=== PATIENT | male | born 2000 | race Caucasian/White ===

== ENCOUNTER 2024-05-14 16:54 | Emergency (ER) | payer SELFPAY ==
--- NOTE | ~2024-05-14 | XR_ITS ---
CHEST RADIOGRAPH, PA AND LATERAL CLINICAL HISTORY: cough . COMPARISON: None available TECHNIQUE: PA and lateral views of the chest. FINDINGS The cardiomediastinal silhouette is unremarkable. The lungs are clear. Visualized osseous structures and soft tissues are unremarkable. IMPRESSION: No focal infiltrate or effusion. Reviewed, dictated and finalized at location A.
[2024-05-14 16:58] VITALS: BP 144/84; PULSE 79; RESP 16; TEMP 36.8; O2SAT 99
--- NOTE | 2024-05-14 17:16 | ED.URI ---
HPI - URI/Sore Throat General Chief Complaint: Upper Respiratory Infection <Annita Rubio APRN - Last Filed: 05/14/24 17:17> Stated Complaint: sore throat, cough, congestion <Annita Rubio APRN - Last Filed: 05/14/24 17:17> Time Seen by Provider: 05/14/24 17:10 <Annita Rubio APRN - Last Filed: 05/14/24 17:17> Focused HPI: Patient is a 24-year-old male who presents to the ER with flu-like symptoms that started approximately 2 nights ago. His symptoms include coughing, stomach ache, sore throat, and diarrhea. He denies any nausea, vomiting, recent fevers. Patient endorses a history GI issues similar to Crohn's, and an appendectomy. He reports he has been around many of his coworkers who have been sick. GENERAL: Well-appearing, well-nourished, and in no acute distress. HEAD: Normocephalic, atraumatic. CHEST: Clear to auscultation. ?No respiratory distress. HEART: Regular rate and rhythm.? NEURO: ?Alert and oriented x3. Patient screened in triage and initial orders placed.? ?Additional care and disposition to be based upon?diagnostic testing and treatment. <Annita Rubio APRN - Last Filed: 05/14/24 17:17> Related Data Allergies/Adverse Reactions: Allergies Allergy/AdvReac Type Severity Reaction Status Date / Time No Known Allergies Allergy Verified 05/14/24 17:18 <Annita Rubio APRN - Last Filed: 05/14/24 17:17> Review of Systems Review of Systems: CONSTITUTIONAL: Denies fever ENT: Reports congestion, sore throat RESPIRATORY: Reports cough. Denies dyspnea. GASTROINTESTINAL: Denies vomiting <Kaley Mares PA-C - Last Filed: 05/14/24 18:25> All systems reviewed & are unremarkable except as noted in HPI and below <Kaley Mares PA-C - Last Filed: 05/14/24 18:25> PMFSH Past Medical History Medical History: Medical History (Updated 05/14/24 @ 18:23 by Kaley Mares PA-C) No active medical problems <Annita Rubio APRN - Last Filed: 05/14/24 17:17> Social History Social History: Social History (Updated 05/14/24 @ 18:23 by Kaley Mares PA-C) Smoking status: Former smoker <Annita Rubio APRN - Last Filed: 05/14/24 17:17> Exam Narrative: GENERAL: Well-appearing, well-nourished, and in no acute distress. HEAD: Normocephalic, atraumatic. EYES: EOMI. ENT: Nares clear, no rhinorrhea or epistaxis. Mucous membranes moist. Oropharynx without tonsillar hypertrophy exudate or other lesions. Bilateral TMs pearly rausch non-bulging NECK: Supple. No adenopathy or masses. CHEST: Clear to auscultation. No respiratory distress. No wheezes rales or rhonchi HEART: Regular rate and rhythm. No murmur heard. Normal peripheral pulses. EXTREMITIES: Normal range of motion. No edema. SKIN: Warm, dry, no rash. NEURO: No focal deficits. Alert and oriented x3. PSYCH: Normal mood and affect <Kaley Mares PA-C - Last Filed: 05/14/24 18:25> Course Course Emergency Course: Patient updated on his workup and agrees with plan of care <Kaley Mares PA-C - Last Filed: 05/14/24 18:25> Vital Signs Vital signs: Vital Signs Temperature 98.3 F 05/14/24 16:58 Pulse Rate 79 05/14/24 16:58 Respiratory Rate 16 05/14/24 16:58 Blood Pressure 144/84 H 05/14/24 16:58 Pulse Oximetry 99 05/14/24 16:58 Temperature 98.3 F 05/14/24 16:58 Pulse Rate 79 05/14/24 16:58 Respiratory Rate 16 05/14/24 16:58 Blood Pressure 144/84 H 05/14/24 16:58 Pulse Oximetry 99 05/14/24 16:58 Oxygen Delivery Room Air 05/14/24 17:15 <Annita Rubio APRN - Last Filed: 05/14/24 17:17> Vital Signs Temperature 98.3 F 05/14/24 16:58 Pulse Rate 79 05/14/24 16:58 Respiratory Rate 16 05/14/24 16:58 Blood Pressure 144/84 H 05/14/24 16:58 Pulse Oximetry 99 05/14/24 16:58 Temperature 98.3 F 05/14/24 16:58 Pulse Rate 79 05/14/24 16:58 Respiratory Rate 16 05/14/24 16:58 Blood Pressure 144/84 H 05/14/24 16:58 Pulse Oximetry 99 05/14/24 16:58 Oxygen Delivery Room Air 05/14/24 17:15 <Kaley Mares PA-C - Last Filed: 05/14/24 18:25> MDM - URI/Sore Throat MDM Narrative Medical decision making narrative: Patient presents the emergency department for cold symptoms ongoing over the last 2 days. Patient is afebrile nontoxic appearing. Lungs are clear on exam. Influenza, RSV, COVID, strep screens are negative. Patient updated on workup and agrees with plan of care. He was given warnings to return to the ER <Kaley Mares PA-C - Last Filed: 05/14/24 18:25> Differential Diagnosis Differential diagnosis: Likely upper respiratory infection, sinusitis, viral infection, bronchitis, influenza and pharyngitis <Kaley Mares PA-C - Last Filed: 05/14/24 18:25> Lab Data Attestation: I reviewed the patient's lab results. <Kaley Mares PA-C - Last Filed: 05/14/24 18:25> Labs: Lab Results 05/14/24 Range/Units 17:02 Influenza A (RT-PCR) Negative (Negative) Influenza B (RT-PCR) Negative (Negative) RSV (RT-PCR) Negative (Negative) SARS-CoV-2 RNA (RT-PCR) Negative (Negative) Group A Strep (PCR) Not detected (Negative) <Annita Rubio APRN - Last Filed: 05/14/24 17:17> Lab Results 05/14/24 Range/Units 17:02 Influenza A (RT-PCR) Negative (Negative) Influenza B (RT-PCR) Negative (Negative) RSV (RT-PCR) Negative (Negative) SARS-CoV-2 RNA (RT-PCR) Negative (Negative) Group A Strep (PCR) Not detected (Negative) <Kaley Mares PA-C - Last Filed: 05/14/24 18:25> Imaging Data Radiologist's impression: ITS Impressions Chest X-Ray 05/14/24 18:01 IMPRESSION: No focal infiltrate or effusion. <Kaley Mares PA-C - Last Filed: 05/14/24 18:25> Critical Care Time Critical Care Time Critical Care Time: No <Kaley Mares PA-C - Last Filed: 05/14/24 18:25> Discharge Plan Discharge Clinical Impression: Upper respiratory infection Qualifiers: URI type: unspecified viral URI Qualified Code(s): J06.9 - Acute upper respiratory infection, unspecified <Annita Rubio APRN - Last Filed: 05/14/24 17:17> Patient Disposition: Home, Self-Care <Annita Rubio APRN - Last Filed: 05/14/24 17:17> Condition: Stable <Annita Rubio APRN - Last Filed: 05/14/24 17:17> Instructions: Viral Syndrome (ED) <Annita Rubio APRN - Last Filed: 05/14/24 17:17> Additional Instructions: Return to the emergency department for worsening symptoms, or any other concerns Remain well-hydrated, get plenty of rest. Take Tylenol or Motrin [id number] for pain as needed. Flonase for nasal congestion. Zyrtec for runny nose. Lozenges or Chloraseptic spray for sore throat. Albuterol 2 puffs every 4-6 hours as needed Follow up with primary care doctor <Annita Rubio APRN - Last Filed: 05/14/24 17:17> Patient Language: Mexican <Annita Rubio APRN - Last Filed: 05/14/24 17:17> Follow-up/Referrals: Concepcion Graham DO [Physician] - PHYSICIAN,FUEL STORAGE TECHNICIAN [Non-Staff] - <Annita Rubio APRN - Last Filed: 05/14/24 17:17> Stand Alone Forms: Work/School Release IP <Annita Rubio APRN - Last Filed: 05/14/24 17:17>
[2024-05-14 17:31] LABS: Strep Group A RT-PCR NOT DETECTED (Negative)
[2024-05-14 17:43] LABS: Influenza A QL RT-PCR Negative (Negative); Influenza B QL RT-PCR Negative (Negative); RSV RNA, RT-PCR Negative (Negative); SARS-CoV-2 RNA PCR Negative (Negative)
--- OUTSIDE RECORDS SUMMARY | 2024-05-14 17:52 | XMS_ITS | Encounter Summary ---
Author Organization [facility] Address [address] [place] [address] Care Team Providers Care Segmental Wall Installer Name Role Phone Bro Melendez MD Primary Care Provider Encounter Details Date Type Department Care Team (Late st Contact Info) Description 11/14/2022 Procedure Pass [facility] [address] Department [address] [facility], [place] [id number] Social History Tobacco Use Types Packs/Day Years Used Date Smoking Tobacco: Some Days e-cigarette Smokeless Tobacco: Former Chew Comments:Vapes and CBD Alcohol Use Standard Drinks/Week Comments Yes 0 (1 standard drink = 0.6 oz pur e alcohol) occasionally Sex and Gender Information Value Date Recorded Sex Assigned at Not on file 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 Wish to be (Past 1 Month) No 023 10:20 PM CDT Maria Antonia Joyner RN 2. Non-Specific Active Suici neville Thoughts (Past 1 Month) No 11/14/2022 10:20 PM CDT Maria Antonia Joyner RN 6. Suicidal Behavior (Lifetime) No 3 10:20 PM CDT Maria Antonia Joyner, SANAM * Calculated C-SSRS Risk Score (Lifetime/Recent) Answer Date of Assessment Author No Risk Indicated 11/14/2022 10:20 PM CDT Maria Antonia Joyner RN documented as of this encounter Plan of Treatment Not on file documented as of this encounter Visit Diagnoses Not on filedocumented in this encounter Additional Health Concerns Infection Onset Date Last Indicated Resolved Time INFLUENZA (Seasonal) 12/23/2021 12/23/2021 documented as of this encounter Care Teams Segmental Wall Installer Relationship Specialty Start Date End Date Bro Melendez MD [address] [place] [address] [place]y [id number] PCP - General 01/24/17 documented as of this encounter
--- OUTSIDE RECORDS SUMMARY | 2024-05-14 17:52 | XMS_ITS | Encounter Summary ---
Author Organization [facility] Address [address] [facility] [place] [address] Care Team Providers Care Bio Medical Technician Name Role Phone Bro Melendez MD Primary Care Provider [phone] Encounter Details Date Type Department Care Team (Late st Contact Info) Description 02/28/2022 Procedure Pass [facility] Department [address] [facility], [place] [id number] Social History Tobacco Use Types Packs/Day Years Used Date Smoking Tobacco: Never Smokeless Tobacco: Current Comments:Vapes and CBD Alcohol Use Standard Drinks/Week Comments Yes 0 (1 standard drink = 0.6 oz pur e alcohol) occasionally Sex and Gender Information Value Date Recorded Sex Assigned at Not on file 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 Wish to be (Past 1 Month) No 023 7:12 AM Humera Ko, SANAM 2. Non-Specific Active Suici neville Thoughts (Past 1 Month) No 02/28/2022 7:12 AM Humera Ko RN 6. Suicidal Behavior (Lifetime) No 3 7:12 AM Humera Ko, RN * Calculated C-SSRS Risk Score (Lifetime/Recent) Answer Date of Assessment Author No Risk Indicated 02/28/2022 7:12 AM Humera Ko, RN documented as of this encounter Plan of Treatment Not on file documented as of this encounter Visit Diagnoses Not on filedocumented in this encounter Additional Health Concerns Infection Onset Date Last Indicated Resolved Time INFLUENZA (Seasonal) 12/23/2021 12/23/2021 documented as of this encounter Care Teams Bio Medical Technician Relationship Specialty Start Date End Date Bro Melendez MD [address] [place] [address] [place] [id number] PCP - General 01/24/17 documented as of this encounter
--- OUTSIDE RECORDS SUMMARY | 2024-05-14 17:52 | XMS_ITS | Referral Summary ---
Author Organization [facility] Address [address] [facility] [place] [address] Care Team Providers Care Ent Surgeon Name Role Phone Bro Melendez MD Primary Care Provider [phone] Allergies No known active allergies Medications oxyCODONE-aceta minophen (PERCOCET) 5-325 mg tablet Take 1 Tablet by mouth every 6 hours as needed for Breakthrough Pain. Max Daily Amount: 4 Tablets. 6 Tablet 3 Active tamsulosin (FLOMAX) 0.4 mg capsule Take 1 Capsule by mouth daily as needed ( until kidney stone is passed). 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 Gender Identity Not on file Sexual Orientation Not on file Last Filed Vital Signs Vital Sign Reading Time Taken Comments Blood Pressure 117/63 11/15/2022 12:10 AM CDT Pulse 86 11/15/2022 12:10 AM CDT Temperature 36.7 C (98 F) 11/15/2022 12:10 AM CDT Respiratory Rate 16 11/15/2022 12:10 AM CDT Oxygen Saturation 100% 11/15/2022 12:10 AM CDT Inhaled Oxygen Concentration - - Weight 104.3 kg (230 lb) 11/14/2022 10:18 PM CDT Height 175.3 cm (5' 9 ) 11/14/2022 10:18 PM CDT Body Mass Index 33.97 11/14/2022 10:18 PM CDT Plan of Treatment Not on file Additional Health Concerns Infection Onset Date Last Indicated INFLUENZA (Seasonal) 12/23/2021 12/23/2021 Care Teams Ent Surgeon Relationship Specialty Start Date End Date Bro Melendez MD [address] [place] [address] [place] [id number] PCP - General 01/24/17
--- OUTSIDE RECORDS SUMMARY | 2024-05-14 17:52 | XMS_ITS | Clinical Summary ---
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
--- OUTSIDE RECORDS SUMMARY | 2024-05-14 17:52 | XMS_ITS | Clinical Summary ---
Author Organization [facility] Address [address] [place] [address] Care Team Providers Care It Instructor Name Role Phone Unavailable Primary Care Provider Unavailabl e Source Comments PLEASE NOTE, if this patient is a minor, it may be UNLAWFUL to discuss sensitive information that is contained in these records (such as FAMILY PLANNING, MENTAL HEALTH or SUBSTANCE ABUSE) with the minor patient's parent or other person without the patient's specific authorization.[facility] Allergies No known active allergies Medications ibuprofen 800 mg tabletIndications :Symptomatic irreversible pulpitis Take 1 Tablet by mouth 3 (three) times daily as needed for pain 20 Tablet 3 Active HYDROcodone-aceta minophen (NORCO) 5-325 mg per tabletIndications :Symptomatic irreversible pulpitis Take 1 Tablet by mouth every 4 to 6 (four to six) hours as needed for pain 16 Tablet 3 Active cephalexin (KEFLEX) 500 mg capsuleIndication s:Symptomatic irreversible pulpitis Take 1 Capsule by mouth 4 (four) times daily 28 Capsule 3 Active Active Problems No known active problems Social History Tobacco Use Types Packs/Day Years Used Date Smoking Tobacco: Never Smokeless Tobacco: Never Tobacco Cessation:Counseling Given: Not Answered Social Connections Answer Date Recorded Connectedness 0 10/30/2023 Financial Resource Strain Answer Date R ecorded Financial Resource Strain 0 2022 Stress Answer Date Recorded Stress 0 10/07/2022 Physical Activity Answer Date Recorded Physical Activity 0 10/07/2022 Food Insecurity Answer Date Recorded Food 0 11/10/2023 Transportation Needs Answer Date Record ed Transportation 0 10/07/2022 Housing Stability Answer Date Recorded Housing 0 10/07/2022 Safety and Environment Answer Date Filemon rded Safety 0 10/07/2022 Utilities Answer Date Recorded Utilities 0 10/07/2022 Employment Answer Date Recorded Stress 0 10/30/2023 Sex and Gender Information Value Date Recorded Sex Assigned at Male 10/07/2022 6:46 AM PDT Legal Sex Male 12:10 PM PDT Gender Identity Male 10/07/2022 6:46 AM PDT Sexual Orientation Straight 10/07/2022 6: 46 AM PDT Plan of Treatment Health Maintenance Due Date Last Done Comments Anxiety Screening 1999 Hepatitis C Screening 1999 Tobacco Screening 1999 Imm-Varicella (1 of 2 - 13+ 2-dose series) 2012 HIV Screening 2014 Imm-HPV (1 - Male 3-dose series) 2014 Hypertension Screening (#1) 2017 Imm-DTaP/Tdap/Td (1 - Tdap) 2018 Imm-Hepatitis B (1 of 3 - 19+ 3-dose series) 9 [id number] (1 - 2023- season) 2023 Imm-Influenza (#1) 2023 Alcohol and Drug Screen 02/15/2024 Depression Annual Screen 02/15/2024
== END 2024-05-14 18:30 | disposition home or self-care (01) ==
PROVIDERS: Registered Nurse; Emergency Provider Physician Assistant
DX: J06.9 Acute upper respiratory infection, unspecified (principal); Z20.822 Contact with and (suspected) exposure to COVID-19; Z87.891 Personal history of nicotine dependence
CPT/HCPCS: 71046; 87637; 87651; 99283